=== PATIENT | male | born 1955 | race Caucasian/White ===

== ENCOUNTER 2018-01-17 14:03 | Day surgery (SDC) | payer OTHER ==
[2018-01-10 16:21] LABS: BASOPHILS % (AUTO) 0.3 % (0-1); EOSINOPHILS # (AUTO) 0.3 X10'3 (0-0.9); EOSINOPHILS % (AUTO) 4.3 % (0-6); HEMATOCRIT 37.8 % (42.0-52.0); HEMOGLOBIN 12.3 g/dl (14.0-17.9); LYMPHOCYTES # (AUTO) 1.5 X10'3 (1.1-4.8); LYMPHOCYTES % (AUTO) 24.2 % (21-51); MEAN CORPUSCULAR HEMOGLOBIN 30.2 PG (27.0-31.0); MEAN CORPUSCULAR HGB CONC 32.6 % (33.0-36.5); MEAN CORPUSCULAR VOLUME 92.8 FL (78-98); MEAN PLATELET VOLUME 8.9 FL (7.4-10.4); MONOCYTES # (AUTO) 0.5 X10'3 (0-0.9); MONOCYTES % (AUTO) 7.6 % (2-12); NEUTROPHILS # (AUTO) 3.8 X10'3 (1.8-7.7); NEUTROPHILS % (AUTO) 63.6 % (42-75); PLATELET COUNT 202 X10'3 (140-440); RED BLOOD COUNT 4.08 X10'6 (4.70-6.10); RED CELL DISTRIBUTION WIDTH 14.5 % (11.5-14.5)
[2018-01-10 16:24] LABS: CLARITY,URINE SLIGHTLY CLOUDY (Clear); COLOR,URINE YELLOW (Yellow); GLUCOSE, URINE NEGATIVE (Neg); KETONES,URINE NEGATIVE (Neg); LEUKOCYTE ESTERASE ,URINE NEGATIVE (Neg); NITRITES, URINE NEGATIVE (Neg); OCCULT BLOOD,URINE SMALL (Neg); PROTEIN,URINE 30 mg/dl (Neg); UROBILINOGEN,URINE 0.2 E.U/dL (0.2-1.0)
[2018-01-10 16:29] LABS: UA COLLECTION TYPE CLN CATCH MIDSTREAM
[2018-01-10 16:30] LABS: ALBUMIN 3.2 G/DL (3.4-5.0); ANION GAP 6 (8-16); BLOOD UREA NITROGEN 10 MG/DL (7-18); BUN/CREATININE RATIO 7.6 (5.4-32.0); CALCIUM 9.4 MG/DL (8.5-10.1); CHLORIDE 104 MMOL/L (99-107); CREATININE 1.32 MG/DL (0.60-1.10); GLUCOSE 88 MG/DL (70-104); POTASSIUM 3.7 MMOL/L (3.5-5.1); SODIUM 140 MMOL/L (135-145); TOTAL CARBON DIOXIDE 30.5 MMOL/L (24-32); eGFR 55 ML/MIN
[2018-01-10 16:31] LABS: PARTIAL THROMBOPLASTIN TIME 29 SECONDS (22-32); PROTHROMBIN TIME 9.9 SECONDS (9.0-12.0)
[2018-01-10 16:32] LABS: BACTERIA,URINE FEW /HPF (Neg); MUCUS STRANDS FEW /LPF (Neg); RBC,URINE 20-50 /HPF (0-2); SQUAMOUS EPITHELIAL CELL,UR FEW /LPF (FEW)
[~2018-01-17] VITALS: Ht 193 cm; Wt 127.5 kg
[~2018-01-17 14:03] MED LIST: CYCL10TA PO; GABA-338 PO; LISI40TA4 PO; MELO-82 PO; PRAZ2CAP2 PO; SPIR1TAB4 PO; SULF500T47 PO; TAMS0.4C32 PO; [UNRECOGNIZED DRUG - CODE] PO
[2018-01-17 14:20] VITALS: BP 150/92
[2018-01-17] MEDS ORDERED: normal saline 1000ml 1,000 ML IV SCH (14:45)
[2018-01-17] MEDS ORDERED: diphenhydrAMINE 25mg capsule PO PRN (14:45)
[2018-01-17] MEDS ORDERED: LORazepam 0.5 MG tablet PO PRN (14:45)
[2018-01-17] MEDS ORDERED: LORA10TA7 PO (15:55)
[2018-01-17] MEDS ORDERED: TRAZ-219 PO (15:55)
[2018-01-17] MEDS ORDERED: ASPI81TA52 PO (15:56)
[2018-01-17] MEDS ORDERED: SECU150P2 SQ (15:57)
[2018-01-17] MEDS ORDERED: LIDOCAINE 5% CREAM (16:00)
[2018-01-17] MEDS ORDERED: ceFAZolin 1GM/D5W- ADD-VANTAGE 50 ML IV SCH (16:00)
[2018-01-17] MEDS ORDERED: LITH450T2 PO (16:02)
[2018-01-17] MEDS ORDERED: POTA10TA21 PO (16:03)
[2018-01-17] MEDS ORDERED: BUPR200T2 PO (16:04)
[2018-01-17] MEDS ORDERED: GABA-532 PO (16:04)
[2018-01-17] MEDS ORDERED: midazolam 2 mg/2 ml injection ONE (16:29)
[2018-01-17] MEDS ORDERED: clindamycin 600mg/D5W 50ml 50 ML IV ONE (16:29)
[2018-01-17] MEDS ORDERED: clindamycin phosphate 150mg/ml inj. ONE (16:29)
[2018-01-17] MEDS ORDERED: lidocaine 1%/epinephrine 1:100,000 injection 50ml vial ONE (16:30)
[2018-01-17] MEDS ORDERED: fentaNYL/PF 50MCG/1 ML 2ML syringe ONE (16:30)
[2018-01-17 17:43] VITALS: BP 163/102
[2018-01-17 18:00] VITALS: BP 139/84
[2018-01-17] MEDS ORDERED: HYDROcodone/acetaminophen 5mg/325mg tablet PO PRN (18:10)
[2018-01-17] MEDS ORDERED: HYDROcodone/acetaminophen 10/325mg tab PO PRN (18:10)
[2018-01-17] MEDS ORDERED: LORazepam 1 MG tablet PO PRN (18:10)
[2018-01-17 18:15] VITALS: BP 163/101
[2018-01-17 18:30] VITALS: BP 170/105
[2018-01-17 18:45] VITALS: BP 169/90
== END 2018-01-17 19:20 | disposition home or self-care (01) ==
LOC: SSTAY O 14:03
PROVIDERS: ATTEND Internal Medicine Interventional Cardiology
DX: I49.5 Sick sinus syndrome (principal); I42.9 Cardiomyopathy, unspecified; I25.10 Atherosclerotic heart disease of native coronary artery without angina pectoris; E66.3 Overweight; G47.33 Obstructive sleep apnea (adult) (pediatric); M05.9 Rheumatoid arthritis with rheumatoid factor, unspecified; L40.59 Other psoriatic arthropathy; I79.0 Aneurysm of aorta in diseases classified elsewhere; I11.0 Hypertensive heart disease with heart failure; I50.22 Chronic systolic (congestive) heart failure; H91.8X3 Other specified hearing loss, bilateral; I27.20 Pulmonary hypertension, unspecified; I71.4 Abdominal aortic aneurysm, without rupture; M06.9 Rheumatoid arthritis, unspecified; K21.9 Gastro-esophageal reflux disease without esophagitis; E78.5 Hyperlipidemia, unspecified; L40.50 Arthropathic psoriasis, unspecified; Z96.651 Presence of right artificial knee joint; Z96.611 Presence of right artificial shoulder joint; Z79.891 Long term (current) use of opiate analgesic; Z79.82 Long term (current) use of aspirin; Z88.1 Allergy status to other antibiotic agents; Z88.0 Allergy status to penicillin; Z91.030 Bee allergy status; Z68.34 Body mass index [BMI] 34.0-34.9, adult; Z86.74 Personal history of sudden cardiac arrest; Z87.891 Personal history of nicotine dependence; Z98.890 Other specified postprocedural states; Z88.8 Allergy status to other drugs, medicaments and biological substances; Z79.899 Other long term (current) drug therapy
CPT/HCPCS: 33208; 36415; 80048; 81001; 85025; 85610; 85730; 87088; 93005; 99152; 99153; C1785; C1898; J2250; J3010; J3490; Q0163; A4565; A4620